=== PATIENT | male | born 1995 | race Caucasian/White ===

== ENCOUNTER 2019-06-25 18:39 | Emergency (ER) | payer SELFPAY ==
[2016-05-11 16:39] VITALS: Wt 72.6 kg
[~2019-06-25 18:39] MED LIST: AUG500 PO; BEN100 JT; METH36 PO; MULT-859 PO; ONDA4TAB PO; PRE20 PO; RISP-29 PO; RISP-34 PO
--- NOTE | 2019-06-25 19:12 | ER Report ---
History and Physical Time Seen By MD: 19:09 HPI/ROS CHIEF COMPLAINT: Left leg pain HISTORY OF PRESENT ILLNESS: Pt is a 23 yo M c/o left leg pain that has been worsening over the last week. States it started after he moved a heavy hospital bed by himself about 10 days ago. Has used RICED, heated, [place] Webb and 800mg IBU q8 hours with no pain relief. Went to [facility] 2 days ago for the pain who gave him a muscle relaxer. This helped yesterday but today the pain is a 10/10. No SOB or CP. Has slight pain under left gluteus as well. REVIEW OF SYSTEMS: Respiratory: No cough, no dyspnea. Cardiovascular: No chest pain, no palpitations. Gastrointestinal: No vomiting, no abdominal pain. Musculoskeletal: No back pain, left gluteal pain, left calf pain, left leg pain Allergies: Coded Allergies: latex (Verified Allergy, Intermediate, RASH, 05/11/16) BEE STINGS (Unverified Allergy, Unknown, 05/11/16) SWELLING AT PUNCTURE SITE Home Meds Active Scripts Hydrocodone Bit/Acetaminophen (HYDROCODON-ACETAMINOPHEN 5-325) 1 Each Tablet, 1 EACH PO Q4-6H PRN for PAIN, #8 TAB Prov:MELVI APPIAH [employer] 06/25/19 Prednisone (PREDNISONE) 20 Mg Tablet, 40 MG PO DAILY, #10 TAB Prov:MELVI APPIAH [facility] 06/25/19 Reported Medications Sertraline Hcl (SERTRALINE HCL) 100 Mg Tablet, 1 TAB PO PRN 06/25/19 Cyclobenzaprine Hcl (CYCLOBENZAPRINE HCL) 10 Mg Tablet, 1 TAB PO TID 06/25/19 Risperidone (RISPERDAL) 1 Mg Tablet, 1-2 MG PO QHS PRN for AGITATION 05/12/16 Methylphenidate Hcl (CONCERTA (PT OWN)) 36 Mg Tab, 36 MG PO QAM 03/26/13 Discontinued Reported Medications Multivits,Ca,Minerals/Iron/Fa (THERA-M TABLET) 1 Each Tablet, 1 EACH PO QDAY 05/12/16 Past Medical/Surgical History Asthma, EENT disorders, glasses, PTSD, Deprssion/Anxiety, ADHD, ODD, ADD Reviewed Nurses Notes: Yes Hx Smoking: Yes Smoking Status: Light Tobacco Smoker Exposure to Second Hand Smoke?: Yes Hx Substance Use Disorder: No Hx Alcohol Use: No Constitutional Vital Sign - Last 24 Hours 06/25/19 19:09 Temp 98.0 Pulse 100 Resp 24 B/P (MAP) 148/85 Pulse Ox 94 O2 Delivery Room Air Physical Exam General Appearance: The patient is alert, has no immediate need for airway protection and no current signs of toxicity. Eyes: Pupils equal and round no injection. Respiratory: Chest is non tender, lungs are clear to auscultation. Cardiac: regular rate and rhythm Gastrointestinal: Abdomen is soft and non tender, no masses, bowel sounds normal. Musculoskeletal: Neck: Neck is supple and non tender. Extremities have full range of motion, pain with generalized movement of left lower extremity, tenderness in popliteal fossa of left lower extremity and left gluteus minimus tendernesss on the left Skin: No rashes or lesions. DIFFERENTIAL DIAGNOSIS: After history and physical exam differential diagnosis was considered for muscle strain, DVT, sciatica. Medical Decision Making EKG/Imaging Imaging L-SPINE >4 VIEWS HISTORY: gluteal pain AP lateral oblique and coned-down sacral views of the lumbar spine. FINDINGS: Vertebral bodies are well maintained with respect to height at all levels with exception of the L1 vertebral body that demonstrates a very minimal anterior wedging. Disc spaces are well-maintained with exception of mild disc space narrowing at the L4-5 and L5-S1 levels. No spondylolysis. No spondylolisthesis. Oblique views demonstrates well-maintained facet joints with no facet pathology. AP film demonstrates no scoliosis of any significance. SI joints are unremarkable. Nonspecific bowel gas pattern. IMPRESSION: 1. Negative lumbar spine for acute pathology or any significant DJD. Mild disc space narrowing changes at the L4-5 and L5-S1 level. Report Dictated By: Lele Adkins MD at 06/25/2019 8:26 PM Report E-Signed By: Lele Adkins MD at 06/25/2019 8:28 PM US VENOUS LOWER EXT LT HISTORY: Posterior left knee pain/cramping and ankle pain. Symptoms for one week COMPARISON STUDIES: None. TECHNIQUE: Grayscale compression, duplex, and color Doppler interrogation of the left lower extremity deep veins from the common femoral vein to proximal calf was performed. The greater saphenous vein in the ipsilateral proximal thigh was evaluated using similar technique. FINDINGS: LEFT LOWER EXTREMITY Common femoral vein: Normal. Deep femoral vein: Normal. Femoral vein: Normal. Popliteal vein: Normal. Visualized deep calf veins: Normal. Greater saphenous vein in the proximal thigh: Normal. Popliteal fossa: Normal. IMPRESSION: 1. There is no deep venous thrombosis of the left lower extremity. Report Dictated By: Gillian Sterling at 06/25/2019 9:17 PM Report E-Signed By: Gillian Sterling at 06/25/2019 9:20 PM ED Course/Re-evaluation ED Course Patient presented to ED with left leg pain that has been worsening over the last week. Describes the pain as constant with no improvement from RICE, T[place] Webb topical, 800mg IBU or muscle relaxors. Saw his PCP and [facility] for this pain in the last week. Denied numbness or tingling, hot or cold to the touch. On physical exam patient was able to move left lower extremity in FROM with pain. Tenderness over left distal gluteus and popliteal fossa. Differential Diagnoses considered. Venous doppler and L-spine XR ordered. Doppler has no acute find ings. XR showed minimal narrowing of L4-L5 and L5-S1. Most likely diagnosis is sciatica pain. This was discussed with the patient and patient understood condition. Prednisone pack given as Rx. Follow up with PCP or ER if pain is not resolved or pain worsens. Decision to Disposition Date: Jun 25, 2019 Decision to Disposition Time: 21:43 Depart Departure Latest Vital Signs Vital Signs Date Time Temp Pulse Resp B/P (MAP) Pulse Ox O2 Delivery O2 Flow Rate FiO2 06/25/19 19:09 98.0 100 24 148/85 94 Room Air Impression: Primary Impression: Sciatica Condition: Improved Disposition: HOME OR SELF-CARE Referrals: ELISABETH MUNGUIA MD (PCP) New Scripts Hydrocodone Bit/Acetaminophen (HYDROCODON-ACETAMINOPHEN 5-325) 1 Each Tablet 1 EACH PO Q4-6H PRN for PAIN, #8 TAB Prov: MELVI APPIAH 06/25/19 Prednisone (PREDNISONE) 20 Mg Tablet 40 MG PO DAILY, #10 TAB Prov: MELVI APPIAH 06/25/19 Patient Instructions: Sciatica (ED) Additional Instructions: Limit activity by pain. Get plenty of rest. Follow up with your primary care provider in the next week. Return to the ER if condition worsens. Take medication as prescribed. Increase fluid intake. You may alternate ice and heat to your back. Problem Qualifiers Primary Impression: Sciatica Laterality: left Qualified Codes: M54.32 - Sciatica, left side MELVI APPIAH Jun 25, 2019 19:12
[2019-06-25] MEDS ORDERED: CYCL10TA29 PO (19:18)
[2019-06-25] MEDS ORDERED: SERT-181 PO (19:18)
[2019-06-25] MEDS ORDERED: APAP/HYDROCODONE 325/5 TAB PO ONE (19:40)
--- NOTE | 2019-06-25 20:35 | RADIOLOGY IMAGING REPORT ---
FACILITY: [facility] PATIENT NAME: Elijah Soto : 1995 MR: [id number] V: [id number] EXAM DATE: ORDERING PHYSICIAN: MELVI APPIAH TECHNOLOGIST: Location: [facility] [place] Patient: Elijah Soto : 1995 Visit/Account:[id number] Date of Sevice: 06/25/2019 L-SPINE >4 VIEWS HISTORY: gluteal pain AP lateral oblique and coned-down sacral views of the lumbar spine. FINDINGS: Vertebral bodies are well maintained with respect to height at all levels with exception of the L1 ve rtebral body that demonstrates a very minimal anterior wedging. Disc spaces are well-maintained with exception of mild disc space narrowing at the L4-5 and L5-S1 levels. No spondylolysis. No spondylolis thesis. Oblique views demonstrates well-maintained facet joints with no facet pathology. AP film demonstrates no scoliosis of any significance. SI joints are unremarkable. Nonspecific bowel gas pattern. IMPRESSION: 1. Negative lumbar spine for acute pathology or any significant DJD. Mild disc space narrowing change s at the L4-5 and L5-S1 level. Report Dictated By: Lele Adkins MD at 06/25/2019 8:26 PM Report E-Signed By: Lele Adkins MD at 06/25/2019 8:28 PM WSN:[id number]
--- NOTE | 2019-06-25 21:27 | RADIOLOGY IMAGING REPORT ---
FACILITY: [facility] [place] PATIENT NAME: Elijah Soto : 1995 MR: [id number] V: [id number] EXAM DATE: ORDERING PHYSICIAN: MELVI APPIAH TECHNOLOGIST: Location: [facility] Patient: Elijah Soto : 1995 Visit/Account:[id number] Date of Sevice: 06/25/2019 US VENOUS LOWER EXT LT HISTORY: Posterior left knee pain/cramping and ankle pain. Symptoms for one week COMPARISON STUDIES: None. TECHNIQUE: Grayscale compression, duplex, and color Doppler interrogation of the left lower extremity deep veins from the common femoral vein to proximal calf was performed. The greater saphenous vein i n the ipsilateral proximal thigh was evaluated using similar technique. FINDINGS: LEFT LOWER EXTREMITY Common femoral vein: Normal. Deep femoral vein: Normal. Femoral vein: Normal. Popliteal vein: Normal. Visualized deep calf veins: Normal. Greater saphenous vein in the proximal thigh: Normal. Popliteal fossa: Normal. IMPRESSION: 1. There is no deep venous thrombosis of the left lower extremity. Report Dictated By: Gillian Sterling at 06/25/2019 9:17 PM Report E-Signed By: Gillian Sterling at 06/25/2019 9:20 PM WSN:[id number]
[2019-06-25] MEDS ORDERED: PRED20TA6 PO (21:48)
[2019-06-25] MEDS ORDERED: HYDR-385 PO (21:48)
[2019-06-25 22:00] VITALS: BP 129/93
[2019-06-25] MEDS ORDERED: ACET/HYDROC 5/325MG TH ER ONLY 2 TAB/BOTTLE PO ONE (22:15)
== END 2019-06-25 22:16 | disposition home or self-care (01) ==
LOC: ER 18:57
DX: M54.32 Sciatica, left side (principal)
CPT/HCPCS: 72120; 99284

== ENCOUNTER 2019-07-04 17:12 | Emergency (ER) | payer SELFPAY ==
[2016-05-11 16:39] VITALS: Wt 72.6 kg
[~2019-07-04 17:12] MED LIST changes: +CYCL10TA29 PO; +HYDR-385 PO; +PRED20TA6 PO; +SERT-181 PO
--- NOTE | 2019-07-04 17:24 | ER Report ---
History and Physical Time Seen By MD: 17:20 Hx. of Stated Complaint: STATES HE RAN OUT OF MEDICATION OVER THE PAST FEW DAYS AND NOW HIS BACK/LEFT LEG PAIN IS WORSE. ANOTHER MD PRESCRIBED VOLTAREN BUT PATIENT STATES "THEY ARE USELESS" HPI/ROS CHIEF COMPLAINT: Left leg pain HISTORY OF PRESENT ILLNESS: Patient is a 23 y M returning to the ED with left leg pain. He has had this pain for over 2 weeks, we saw him for the same symptom s on 06/25 for which he was diagnosed with Sciatica and given Hydrocodone + Prednisone and instructed to follow up with his PCP. He ran out of the prednisone on wednesday and narcotics on wednesday. The pain returned and became severe this morning. He called his PCP but was unable to make an appointment, he did prescribe him Diclofenac BID. Pt took Diclofenac 2 hours ago and states it d id not kick in fast enough and that he needs something for faster pain relief. He has an appointment with hip and spine doc on 07/14, would like more meds to get him through to his appointment. Allergies: Coded Allergies: latex (Verified Allergy, Intermediate, RASH, 07/04/19) BEE STINGS (Unverified Allergy, Unknown, 07/04/19) SWELLING AT PUNCTURE SITE Home Meds Active Scripts Ketorolac Tromethamine (KETOROLAC TROMETHAMINE) 10 Mg Tab, 10 MG PO Q6H, #20 TAB Prov:MELVI APPIAH 07/04/19 Reported Medications Sertraline Hcl (SERTRALINE HCL) 100 Mg Tablet, 1 TAB PO PRN 06/25/19 Risperidone (RISPERDAL) 1 Mg Tablet, 1-2 MG PO QHS PRN for AGITATION 05/12/16 Methylphenidate Hcl (CONCERTA (PT OWN)) 36 Mg Tab, 36 MG PO QAM 03/26/13 Discontinued Reported Medications Cyclobenzaprine Hcl (CYCLOBENZAPRINE HCL) 10 Mg Tablet, 1 TAB PO TID 06/25/19 Discontinued Scripts Hydrocodone Bit/Acetaminophen (HYDROCODON-ACETAMINOPHEN 5-325) 1 Each Tablet, 1 EACH PO Q4-6H PRN for PAIN, #8 TAB Prov:MELVI APPIAH 06/25/19 Prednisone (PREDNISONE) 20 Mg Tablet, 40 MG PO DAILY, #10 TAB Prov:MELVI APPIAH 06/25/19 Past Medical/Surgical History Past Medical history of asthma, back pain, glasses, PTSD, Depressed, ADHD, ODD, ADD No past surgical history No past family history Hx Smoking: Yes Smoking Status: Light Tobacco Smoker Exposure to Second Hand Smoke?: Yes Hx Substance Use Disorder: No Hx Alcohol Use: No Constitutional Vital Sign - Last 24 Hours 07/04/19 07/04/19 07/04/19 07/04/19 17:17 17:30 18:00 18:30 Temp 97.7 Pulse 98 91 91 76 Resp 20 B/P (MAP) 154/115 164/107 (126) 147/105 (119) 142/89 (106) Pulse Ox 96 94 93 92 O2 Delivery Room Air Physical Exam General appearance: Alert no distress, cane in room Respiratory: Chest is non tender, lungs are clear to auscultation. Cardiac: Regular rate and rhythm MSK: Limited ROM in every direction for lumbar spine, pain in left hamstring with movement DIFFERENTIAL DIAGNOSIS: After history and physical exam differential diagnosis was considered for muscle strain, sciatica Medical Decision Making ED Course/Re-evaluation ED Course Patient is a 23 year old male presenting to the ED with left leg pain. Was seen in ED for same pain on 06/25/19, dx with Sciatica and given Hydrocodone- aceta minophen 5-325mg and Prednisone. Was instructed to follow up with PCP. This helped the pain until he ran out of meds. The pain in his leg returned this morning. He gave his PCP a call who prescribed him diclofenac. Patient states it did not help. Has an appointment scheduled with Dr. Campbell at the spine clinic on 07/14. Physical exam showed limited ROM to lumbosacral junction in all directions due to pain. Flexion of knee limited ROM due to pain. Differential diagnoses considered. Patient given 60mg IM Toradol. Patient status improved. Discharged with 20 tabs of 10mg Toardol PO. Decision to Disposition Date: Jul 04, 2019 Decision to Disposition Time: 18:44 Depart Departure Latest Vital Signs Vital Signs Date Time Temp Pulse Resp B/P (MAP) Pulse Ox O2 Delivery O2 Flow Rate FiO2 07/04/19 18:30 76 142/89 (106) 92 07/04/19 17:17 97.7 20 Room Air Impression: Primary Impression: Sciatica Condition: Improved Disposition: HOME OR SELF-CARE Referrals: ELISABETH MUNGUIA MD (PCP) New Scripts Ketorolac Tromethamine (KETOROLAC TROMETHAMINE) 10 Mg Tab 10 MG PO Q6H, #20 TAB Prov: MELVI APPIAH 07/04/19 Patient Instructions: Sciatica (ED) Additional Instructions: Limit activity by pain. Take medication as prescribed. Follow up with Dr. Campbell as scheduled. Return to the ER if condition worsens. Avoid heavy lifting. Problem Qualifiers Primary Impression: Sciatica Laterality: left Qualified Codes: M54.32 - Sciatica, left side MELVI APPIAH Jul 04, 2019 17:24
[2019-07-04] MEDS ORDERED: KETOROLAC 60 MG/2 ML VIAL IM ONE (18:00)
[2019-07-04 18:30] VITALS: BP 142/89
[2019-07-04] MEDS ORDERED: KET10 PO (18:49)
[2019-07-04] MEDS ORDERED: KETOROLAC TROM 10 MG TAB TH PO ONE (18:50)
== END 2019-07-04 18:53 | disposition home or self-care (01) ==
LOC: ER 17:17
DX: M54.32 Sciatica, left side (principal)
CPT/HCPCS: 96372; 99283; J1885